=== PATIENT | female | born 1985 | race Caucasian/White ===

== ENCOUNTER 2025-01-23 15:31 | Emergency (ER) | payer OTHER, SELFPAY ==
[2025-01-23 15:34] VITALS: BP 150/101
[2025-01-23 15:57] LABS: Hematocrit 36.4 % (37.0-47.0); Hemoglobin 13.0 g/dL (12.0-16.0); Mean Corp Hgb Conc. 35.7 g/dL (33.0-37.0); Mean Corpuscular Volume 90.3 fL (81.0-99.0); Nucleated Red Blood Cells % 0 %; Platelet Count 275 10^3/uL (130-400); Red Cell Dist. Width 13.6 % (11.5-14.5)
[2025-01-23 16:15] LABS: ALT (SGPT) 13 U/L (0-35); AST (SGOT) 16 U/L (14-36); Albumin 4.2 g/dl (3.5-5.0); Alkaline Phosphatase 65 U/L (38-126); Blood Urea Nitrogen 7 mg/dl (7-17); Calcium 9.0 mg/dl (8.4-10.2); Carbon Dioxide 21 mmol/L (22-30); Chloride 103 mmol/L (98-107); Glucose 87 mg/dl (70-99); Potassium 3.9 mmol/L (3.5-5.1); Sodium 134 mmol/L (135-145); Total Protein 7.3 g/dl (6.3-8.2); eGFR > 60.00
--- NOTE | 2025-01-23 18:11 | ED.GENMED ---
History of Present Illness
General
Chief Complaint: Problems
Time Seen by Provider: 01/23/25 17:55
History of Present Illness
History of Present Illness:
39-year-old female presents to the emergency department for evaluation of vaginal bleeding. G3, P2 currently 15 weeks gestational age, states she had a fall yesterday after she slipped on ice and landed on her buttocks and back. Had no bleeding
yesterday but developed pink spotting this morning before heavy bleeding this afternoon. She states the bleeding seems to improved. Denies any pelvic cramping or abdominal pain. No history of miscarriage. Denies any dysuria or hematuria
Review of Systems
Review of Systems
Allergies reviewed?: Yes
All Other Systems: ROS reviewed and negative except as documented in HPI and ROS
Phy Exam
Physical Exam
Physical Exam:
GEN: Well appearing, NAD, WDWN
HEENT: Oral mucosa moist, no scleral icterus
Cardiac: Regular rate
Lung: No respiratory distress, no tachypnea
Pelvic: Patient declines pelvic exam
MSK: No gross deformity or injuries
Skin: Good color, no pallor or jaundice, no rashes
Neuro: AO x3, moves all extremities freely
Psych: Calm, cooperative
Course
Orders/Labs/Results
Orders:
Orders
01/23/25 15:37
US Limited Urgent
Reason For Exam: bleeding
01/23/25 15:42
Type+Screen Urgent
Complete Blood Count/With Diff Urgent
Comprehensive Metabolic Panel Urgent
01/23/25 18:15
* Blood Bank Products Urgent
Blood Bank Products: *Rhogam - Full Dose
Quantity: 300mg
Transfuse Today: Yes
Reason: Other
Other reason: Vaginal bleeding/miscarriage
Rho (D) Immune Globulin [Rhogam] 300 mcg IM ONCE ONE
Abnormal Lab Results
01/23/25
15:42
RBC 4.03 L 10^6/uL
(4.20-5.40)
Hct 36.4 L %
(37.0-47.0)
MCH 32.3 H pg
(27.0-31.0)
Absolute Neuts (auto) 7.2 H 10^3/uL
(1.4-6.5)
Absolute Monos (auto) 0.7 H 10^3/uL
(0.1-0.6)
Sodium 134 L mmol/L
(135-145)
Carbon Dioxide 21 L mmol/L
(22-30)
Creatinine 0.5 L mg/dL
(0.6-1.0)
01/23/25 15:42
01/23/25 15:42
Vital Signs
Initial and Last Documented VS:
Initial Vital Signs
Temp Pulse Resp BP Pulse Ox
98.2 F 118 16 150/101 100
01/23/25 15:34 01/23/25 15:34 01/23/25 15:34 01/23/25 15:34 01/23/25 15:34
Last Documented Vital Signs
Temp Pulse Resp BP Pulse Ox
98.2 F 118 16 150/101 100
01/23/25 15:34 01/23/25 15:34 01/23/25 15:34 01/23/25 15:34 01/23/25 18:13
Information
Weeks gestation: N/A
Location: N/A
MDM/Problems Addressed
MDM/Problems Addressed:
Ultrasound is reassuring. I did recommend a pelvic exam to try to identify source of bleeding however the patient declined. She will contact her LEARNING COORDINATOR for an outpatient evaluation if bleeding persists. Did advise her that any bleeding in second
trimester is a threatened miscarriage until proven otherwise. Patient was advised to receive RhoGAM due to second trimester vaginal bleeding however she refused and eloped from the ED prior to further discussion could be held regarding this
*Pulse Oximetry
SaO2: 100
Oxygen Mode of Delivery: Room air
Patient hypoxic: no
*Critical Care Note
Total Time (30-74mins, 75-104mins- exclusive of procedures): Not Applicable
ED Attending Note
-
Portions of this chart may have been created with voice recognition software.� Occasional wrong word or��sound alike� substitutions may have occurred due to the inherent limitations of voice recognition software.
Discharge Plan
Departure
Patient Disposition: Home (Routine Discharge)
Date of Disposition: 01/23/25
Time of Disposition: 18:15
Patient with high blood pressure during this ER visit?: No
Discharge Problem:
Second trimester bleeding
Instructions: Threatened Miscarriage (DC)
Prescriptions:
No Action
prenat.vits,cedric,[id number] Tablet
1 tab PO DAILY
sennosides-docusate sodium [Stool Softener-Stimulant Laxat] 8.6-50 mg Tablet
1 tab PO DAILYPRN PRN (Reason: constipation) Qty: 0 0RF
nifedipine 30 mg Tablet Extended Release
30 mg PO DAILY Qty: 60 0RF
acetaminophen [Pain Relief ES (acetaminophen)] 500 mg Tablet
1,000 mg PO Q6HPRN PRN (Reason: headache) Qty: 0 0RF
ibuprofen 600 mg Tablet
600 mg PO Q6HPRN PRN (Reason: cramps) Qty: 60 0RF
Referrals:
Pau Paulino DO [Active, Gynecology]
Samson Hodge MD [Family Provider, Family Practice]
Interventions
Interventions:
*Risk Screen - Suicide Last Done: 01/23/25 15:38
*General Assessment Last Done: 01/23/25 18:43
*Neglect/Abuse Screening Last Done: 01/23/25 15:38
*ED COVID-19 Vaccine History Last Done: 01/23/25 18:43
*ED Influenza Vaccine History Last Done: 01/23/25 18:43
[facility] Fall Risk Assessment Tool Last Done: 01/23/25 18:43
*Nursing Disposition Last Done: 01/23/25 18:43
ED-Female Genitourinary Assessment Last Done: 01/23/25 18:44
Discharge Date and Time
Discharge Date/Time: 01/23/25 18:45
Print Language: ALB[place]
== END 2025-01-23 18:45 | disposition home or self-care (01) ==
LOC: EMR 15:31
PROVIDERS: EMERGENCY PHYSICIAN Emergency Medicine; FAMILY PHYSICIAN Family Medicine
DX: O46.92 Antepartum hemorrhage, unspecified, second trimester (principal); O09.522 Supervision of elderly multigravida, second trimester; Z3A.15 15 weeks gestation of pregnancy
CPT/HCPCS: 99284; 76815; 80053; 85025; 86850; 86900; 86901

== ENCOUNTER 2025-02-05 15:25 | Emergency (ER) | payer OTHER, SELFPAY ==
[2025-02-05 15:28] VITALS: BP 156/97
--- NOTE | 2025-02-05 16:37 | ED.GENMED ---
History of Present Illness
General
Chief Complaint: Problems
Source: patient and records
Exam Limitations: none
Time Seen by Provider: 02/05/25 16:22
History of Present Illness
History of Present Illness:
39yoF female currently around 17 weeks presenting for evaluation of vaginal bleeding. Patient reports feeling a 'gush' of fluid this morning and saw a moderate amount of bright red blood in her underwear. Her bleeding has improved
significantly since then and denies any bleeding currently. She reports a 'side stitch' but denies any overt abdominal pain. She had an anatomy scan last week and was diagnosed with a subchorionic hemorrhage and was given an outpatient
prescription for RhoGAM. She was seen in the ED on 01/23 after a fall and had an ultrasound that was normal.
Phy Exam
General Physical Exam
General Presentation: well appearing and no apparent distress
General Skin: warm and dry
General Habitus: normal
General Mental: alert
ENT Exam
ENT Exam: normocephalic
Pulmonary Exam
Pulmonary Exam: no respiratory distress
Gastrointestinal Exam
Gastrointestinal Exam: non tender, soft, non distended and other (Gravid abdomen. Abdomen soft, non-tender.)
Neurological Exam
Neurological Exam: alert
Anh Coma Scale
Eye Opening: Spontaneous
Verbal Response: Oriented
Motor Response: Obeys Commands
GCS Total Score: 15
Skin Exam
Skin Exam: normal color and warm/dry
Psychiatric Exam
Psychiatric Exam: normal mood/affect
Course
Orders/Labs/Results
Orders:
Orders
02/05/25 16:36
* Blood Bank Products Urgent
Blood Bank Products: *Rhogam - Full Dose
Quantity: 300mg
Transfuse Today: Yes
Reason: Other
Other reason: Vaginal bleeding/miscarriage
Rho (D) Immune Globulin [Rhogam] 300 mcg IM ONCE ONE
US Limited Urgent
Reason For Exam: vaginal bleeding, 17 weeks, hx of subchorionic hem
02/05/25 16:54
Type+Screen Urgent
Complete Blood Count/With Diff Urgent
Comprehensive Metabolic Panel Urgent
Abnormal Lab Results
02/05/25
16:54
WBC 12.7 H 10^3/uL
(4.8-10.8)
RBC 3.74 L 10^6/uL
(4.20-5.40)
Hgb 11.9 L g/dL
(12.0-16.0)
Hct 32.9 L %
(37.0-47.0)
MCH 31.8 H pg
(27.0-31.0)
Abs Immat Gran (auto) 0.1 H 10^3/uL
(0-0.05)
Absolute Neuts (auto) 9.4 H 10^3/uL
(1.4-6.5)
Absolute Monos (auto) 0.9 H 10^3/uL
(0.1-0.6)
Lymphocytes % 18.4 L %
(20.5-51.1)
Sodium 133 L mmol/L
(135-145)
Carbon Dioxide 21 L mmol/L
(22-30)
Creatinine 0.4 L mg/dL
(0.6-1.0)
02/05/25 16:54
02/05/25 16:54
Vital Signs
Initial and Last Documented VS:
Initial Vital Signs
Temp Pulse Resp BP Pulse Ox
98.4 F 98 20 156/97 100
02/05/25 15:28 02/05/25 15:28 02/05/25 15:28 02/05/25 15:28 02/05/25 15:28
Last Documented Vital Signs
Temp Pulse Resp BP Pulse Ox
97.7 F 89 16 128/83 100
02/05/25 18:35 02/05/25 18:35 02/05/25 18:35 02/05/25 18:35 02/05/25 18:35
Information
Weeks gestation: Weeks: (17)
Location: Location: (intrauterine)
MDM/Problems Addressed
Differential Diagnosis Includes:
39yoF here with vaginal bleeding. [place] a gush of bleeding this AM but now stopped. Currently 17 weeks . Recently dx with subchorionic hemorrhage. She is hypertensive with otherwise stable vitals. Abdomen soft, non-tender. Differential
diagnosis includes: subchorionic hemorrhage, placenta previa, less likely placental abruption
Initial ED plan: Check CBC, CMP, type and screen, and pelvic ultrasound. RhoGAM ordered given Rh negative status.
*Pulse Oximetry
SaO2: 100
Oxygen Mode of Delivery: Room air
Patient hypoxic: no
*Critical Care Note
Total Time (30-74mins, 75-104mins- exclusive of procedures): Not Applicable
Update Note
Update Note:
Ultrasound shows single live IUP with findings suspicious for a subchorionic hemorrhage. Discussed case with on-call HEALTH PROGRAM MANAGER, Dr. Vidales, who recommends pelvic rest, nothing per vagina, and avoiding heavy lifting/straining. Recommendations
discussed with patient who is in agreement. Patient advised to follow-up with her HEALTH PROGRAM MANAGER team and she was discharged in stable condition.
ED Attending Note
-
Portions of this chart may have been created with voice recognition software.� Occasional wrong word or��sound alike� substitutions may have occurred due to the inherent limitations of voice recognition software.
Discharge Plan
Departure
Patient Disposition: Home (Routine Discharge)
Date of Disposition: 02/05/25
Time of Disposition: 18:57
Patient with high blood pressure during this ER visit?: No
Discharge Problem:
Subchorionic hemorrhage in second trimester
Instructions: Subchorionic Bleeding
Prescriptions:
No Action
prenat.vits,cedric,[id number] Tablet
1 tab PO DAILY
sennosides-docusate sodium [Stool Softener-Stimulant Laxat] 8.6-50 mg Tablet
1 tab PO DAILYPRN PRN (Reason: constipation) Qty: 0 0RF
nifedipine 30 mg Tablet Extended Release
30 mg PO DAILY Qty: 60 0RF
acetaminophen [Pain Relief ES (acetaminophen)] 500 mg Tablet
1,000 mg PO Q6HPRN PRN (Reason: headache) Qty: 0 0RF
ibuprofen 600 mg Tablet
600 mg PO Q6HPRN PRN (Reason: cramps) Qty: 60 0RF
Referrals:
Pau Paulino, DO [Active, Gynecology]
UNKNOWN - PT DOES,NOT KNOW [Family Provider]
Activity Restrictions/Additional Instructions:
Ultrasound today showed a subchorionic hemorrhage. HEALTH PROGRAM MANAGER recommends pelvic rest, nothing by vagina, and avoiding heavy lifting/strenuous activities.
Please follow-up with your OBGYN team. Return to the ER with any new or worsening symptoms.
Interventions
Interventions:
*General Assessment Last Done: 02/05/25 15:28
*Neglect/Abuse Screening Last Done: 02/05/25 15:28
*Risk Screen - Suicide (C-SSRS) Last Done: 02/05/25 15:28
*Nursing Disposition Last Done: 02/05/25 19:14
ED-Female Genitourinary Assessment Last Done: 02/05/25 17:02
Discharge Date and Time
Discharge Date/Time: 02/05/25 19:15
Print Language: KOSOV[place]
[2025-02-05 17:02] LABS: Hematocrit 32.9 % (37.0-47.0); Hemoglobin 11.9 g/dL (12.0-16.0); Mean Corp Hgb Conc. 36.2 g/dL (33.0-37.0); Mean Corpuscular Volume 88.0 fL (81.0-99.0); Nucleated Red Blood Cells % 0 %; Platelet Count 324 10^3/uL (130-400); Red Cell Dist. Width 13.4 % (11.5-14.5)
[2025-02-05 17:27] LABS: ALT (SGPT) 13 U/L (0-35); AST (SGOT) 17 U/L (14-36); Albumin 4.1 g/dl (3.5-5.0); Alkaline Phosphatase 65 U/L (38-126); Blood Urea Nitrogen 7 mg/dl (7-17); Calcium 9.1 mg/dl (8.4-10.2); Carbon Dioxide 21 mmol/L (22-30); Chloride 104 mmol/L (98-107); Glucose 93 mg/dl (70-99); Potassium 3.7 mmol/L (3.5-5.1); Sodium 133 mmol/L (135-145); Total Protein 7.5 g/dl (6.3-8.2); eGFR > 60.00
[2025-02-05 18:35] VITALS: BP 128/83
[2025-02-05] MEDS: RHOGAM 300 MCG IM (18:43)
--- NOTE | 2025-02-05 18:59 | EDRN ---
1825- RhoGAM received from [employer].
== END 2025-02-05 19:15 | disposition home or self-care (01) ==
LOC: EMR 15:25
PROVIDERS: Physician Assistant; EMERGENCY PHYSICIAN Emergency Medicine
DX: O46.8X2 Other antepartum hemorrhage, second trimester (principal); O09.522 Supervision of elderly multigravida, second trimester; Z3A.17 17 weeks gestation of pregnancy
CPT/HCPCS: 99284; 96372; 76815; 80053; 85025; 86850; 86900; 86901; J2790